=== PATIENT | male | born 1995 | race Caucasian/White ===

== ENCOUNTER 2019-05-16 15:25 | Observation (INO) ==
[2019-05-16] MEDS ORDERED: ZOFRAN IV PRN (15:39)
[2019-05-16] MEDS ORDERED: SALINE LOCK IV FLUID XX ONE (15:39)
[2019-05-16] MEDS ORDERED: SODIUM CHLORIDE 0.9% INJ SCH (15:45)
[2019-05-16] MEDS ORDERED: XYLOCAINE-MPF 2% ONE (17:26)
[2019-05-16] MEDS ORDERED: ROBINUL ONE (17:26)
[2019-05-16] MEDS ORDERED: QUELICIN (DOSE) ONE (17:26)
[2019-05-16] MEDS ORDERED: ZOFRAN ONE (17:26)
[2019-05-16] MEDS ORDERED: ZEMURON ONE (17:27)
[2019-05-16] MEDS ORDERED: DIPRIVAN 1% ONE (17:27)
[2019-05-16 17:43] LABS: HEMATOCRIT 25.9 % (42.0-52.0); HEMOGLOBIN 8.6 g/dL (14.0-18.0)
[2019-05-16] MEDS ORDERED: DECADRON ONE (18:58)
--- NOTE | 2019-05-16 18:59 | ENDOSCOPY OPERATIVE NOTE ---
[facility] ENDOSCOPY OPERATIVE NOTE , PATIENT: Joaquín Newman ADMISSION DATE: 05/16/2019 MR#: [id number] : 1995 EGD PROCEDURE REPORT PROCEDURE DATE: 05/16/2019 SURGEON: Naren Sibley MD STATUS: inpatient BUILDING DISMANTLER: Parker Rodriguez and [employer] PREOPERATIVE DIAGNOSIS: The patient is a 24 yr old male here for an EGD due to melena and acute post hemorrhagic anemia. PROCEDURE PERFORMED: EGD, diagnostic MEDICATIONS: Per Anesthesia TOPICAL ANESTHETIC: none CONSENT: The patient understands the risks and benefits of the procedure and understands that these r isks include, but are not limited to: sedation, allergic reaction, infection, perforation and/or bleeding. Alternative means of evaluation and treatment include, among others: physical exam, x-rays, and/or surgical intervention. The patient elects to proceed with this endoscopic procedure. HISORY AND PHYSICAL: 05/16/2019 function. Hand hygiene and appropriate measures for infection prevention was taken. After the risks, benefits and alternatives of the procedure were thoroughly explained, Informed consent was verified, confirmed and timeout was successfully executed by the treatment team. The patient was anesthetized with topical anesthesia and the [id number]-[id number] ([id number]) endoscope was introduced through the mouth and advanced to the second portion of the duoden um. Retroflexion was performed in the stomach and revealed Fundoplication.. The gastroscope was then slowly withdrawn and removed. ESOPHAGUS: The mucosa of the esophagus appeared normal. There was no evidence of Hiatal hernia, Bar rett's esophagus, or varices. STOMACH: Mild gastritis (inflammation) was found in the gastric antrum. There was no evidence of AV M, Ulcer, tumor or masses seen. DUODENUM: The duodenal mucosa showed no abnormalities. SPECIMENS REMOVED: No ADVERSE EVENTS: There were no complications. POSTOPERATIVE DIAGNOSIS: 1. The mucosa of the esophagus appeared normal 2. Gastritis (inflammation) was found in the gastric antrum 3. The duodenal mucosa showed no abnormalities RECOMMENDATIONS: 1. Resume pre-procedure medications 2. Avoid non-steroid anti-inflammatory drugs 3. Start Clear liquid diet for 1 Day(s) 4. Meckel's scan REPEAT EXAM: Naren Sibley MD eSigned: Naren Sibley MD 05/16/2019 7:14 PM Revised: 05/16/2019 7:14 PM cc: Christopher Kennedy MD PATIENT NAME: Joaquín Newman MR#: [id number]
[2019-05-17] MEDS: PROTONIX IV SCH ×3 (03:44→15:16)
[2019-05-17 06:31] LABS: HEMOGLOBIN 8.3 g/dL (14.0-18.0); MCH 32.2 PG (27-31); MCHC 33.2 g/dL (33-37); MCV 96.9 FL (81-99); MPV 10.4 FL (7.4-10.4); RBC 2.58 XMIL (4.7-6.1); RDW 12.6 % (11.5-14.5); WBC 7.28 X1000 (4.8-10.8)
[2019-05-17 06:49] LABS: AGAP 11; BUN 11 mg/dL (8-22); CHLORIDE 103 mmol/L (98-107); COSMO 276; CREATININE 0.8 mg/dL (0.7-1.2); ESTIMATED GFR > 60; GLUCOSE 124 mg/dL (70-104); POTASSIUM 4.6 mmol/L (3.5-5.1); SODIUM 138 mmol/L (136-145); TCO2 24 mmol/L (25-35)
--- NOTE | 2019-05-17 07:45 | HISTORY AND PHYSICAL ---
CHIEF COMPLAINT: Black stools. HISTORY OF PRESENT ILLNESS: The patient is a 24-year-old white male followed in my medical practice, who had presented to the emergency room on 05/13/2019. He had melanotic stool and felt dizzy and the room was spinning after he had melanotic stool. He has a history of fundoplication x2, so is not vomit. He says he has been drinking heavily over the past 2 years, especially binge drinking on weekends and sometimes drinking during the week. He does admit to drinking several fire balls on 05/13/2019 and thereafter had the melanotic stool and was seen in the ER at [facility] where his hemoglobin was noted to be 11.6. He was discharged on Reglan and omeprazole 40 mg daily and he has been taking that, and he has had about 5 dark stools since that evaluation in the ER. He has had no major abdominal pain. Has been eating some but not a great deal. He also has noted he did drink a Ekta last evening. He also admits to taking 2 qdxk-wqc-lcujlps products for muscle development, which he is unaware of their contents. He is on no other medications. ALLERGIES: No known drug allergies. PAST MEDICAL HISTORY: 1. History of pyloric stenosis. 2. ADHD. 3. History of remote drug usage. 4. History of STD exposure. PAST SURGICAL HISTORY: Fundoplication x2. FAMILY HISTORY: Notable for hypertension in father and mother. SOCIAL HISTORY: Patient lives in [place]. He is moving to [place] in 1 week and is supposed to leave tomorrow for [place]. He lives with his girlfriend. He denies smoking. Does admit to heavy alcohol use, binge drinking. REVIEW OF SYSTEMS: Negative except as above. PHYSICAL EXAMINATION: VITAL SIGNS: Patient seen in the office. Weight is 185, which is down 3 pounds. He is muscular- appearing. Height 6 feet tall. Blood pressure 122/64, pulse 67. BMI 25. GENERAL: Pale-appearing white male, mildly ill appearing. HEENT: TMs clear. Sclerae anicteric. CARMINE, EOMI. OP, no redness. No bruises over the body. NECK: No LA or TMG. CV: Regular rate and rhythm without murmur. LUNGS: Clear to auscultation. BACK: NT. ABDOMEN: Soft. Minimal tenderness epigastrium and minimal right lower quadrant area. No mass or organomegaly. No rebound or guarding. GENITOURINARY AND RECTAL: Deferred. EXT: no cce NEURO: cn 2-12 intact no focal defs RECENT LABORATORY DATA: Reviewed from the ER visit from 05/13/2019 revealing white count 10 then, hemoglobin 11.6, platelets 431,000. CMP shows elevated SGPT at 53, glucose 104, BUN 36, creatinine 0.9, and sodium 131, potassium 4.9. Occult blood positive. On 05/16/2019, white count 5.6, hemoglobin down to 9.1, platelets 350,000. LFTs normal except for SGPT of 49, amylase 49, lipase 20. ASSESSMENT: 1. Gastrointestinal bleed with melanotic stools. 2. Alcohol abuse. 3. History of fundoplication x2. 4. History of pyloric stenosis. 5. Remote history of drug use. 6. Supplement usage for body building. PLAN: Avoid the supplements. He had been on some Clomid as well off the street. He will taper that and come off of that as well. Avoid NSAIDs. We will hold his omeprazole, give him IV Protonix. I have spoken with Dr. Sibley and he will see the patient and plans on EGD soon. Counseled in regard to alcohol cessation. Patient has been off alcohol in the past for up to 3 weeks and had no withdrawal symptoms per his report. cc: Christopher Kennedy MD [facility]
--- NOTE | 2019-05-17 14:15 | Diag Imaging Result Doc PS360 ---
NURA SCAN - 05/17/2019 INDICATION: Acute GI bleeding and anemia TECHNIQUE: 15.6 mCi of pertechnetate was administered COMPARISON: None FINDINGS: The exam is normal. There is normal uptake of the gastric mucosa. There is also normal liver and renal uptake. There is no area of abnormal uptake. IMPRESSION: Negative exam. Electronically signed by Anmol Rossi 05/17/2019 2:13 PM
--- NOTE | 2019-05-17 16:17 | PROGRESS NOTE ---
DATE: 05/17/2019 SUBJECTIVE: Patient is stable. Had a little bit of epigastric pain today, but not severe at all. EGD yesterday revealed mild gastritis, nothing bleeding. No obvious source of blood loss. OBJECTIVE: Vital Signs: Afebrile vital signs stable. CV: RRR without murmur. Lungs: CTA. Abdomen: Soft, NT, ND. No mass. No HSM. Extremities: No edema. Neurologic: Nonfocal. LABORATORIES: Show hemoglobin has dropped consistently and is 8.3 today with white count of 7.28, platelets 303. Sodium 138, potassium 4.6, chloride 103, CO2 24. BUN 11, creatinine 0.8, glucose 124, calcium 9.0. He is O positive with antibody screen negative. Meckel scan is negative. ASSESSMENT: 1. Gastrointestinal bleed, source unknown with negative Meckel scan and essentially negative esophagogastroduodenoscopy. 2. Alcohol abuse. 3. Supplement usage for body building of unknown variety, other than additional medications in addition to Clomid. 4. History of fundoplication times two with history of prior pyloric stenosis as an infant. 5. Remote history of drug use. PLAN: Continue IV PPI currently, and I spoke with Dr. Sibley and his nurse practitioner, and they plan for colonoscopy in the near future. Monitor for any signs of alcohol withdrawal, which appears unlikely at this point. cc: Christopher Kennedy MD
--- NOTE | 2019-05-17 18:32 | GASTROENTEROLOGY PROGRESS NOTE ---
DATE: 05/17/2019 SUBJECTIVE: Patient has denied any evidence of active bleeding over the last 2 days. He has not had a bowel movement yesterday or today. He had an EGD on 05/16/2019. Findings showed normal esophagus, mild gastritis, and normal duodenum. He was instructed to avoid NSAIDs. He had a Meckel's nuclear medicine scan today that showed a negative exam. The exam was normal. There was normal uptake of the gastric mucosa. There was also normal liver and renal uptake. There was no area of abnormal uptake noted. Today, patient's hemoglobin and hematocrit are slightly lower than yesterday, at 8.3 and 25.0. OBJECTIVE: Vital Signs: Temperature 97.7 degrees, pulse 70, respirations 19, blood pressure 135/49. General: The patient is awake and alert, in no acute distress. HEENT: Normocephalic, atraumatic. Pupils equal, round, reactive to light. Sclerae nonicteric. Cardiovascular: Regular rate and rhythm. Respiratory: Lung sounds clear. Abdomen: Soft. Nontender on palpation. Positive bowel sounds. LABORATORY RESULTS: Hematology: WBC 7.28, hemoglobin 8.3, hematocrit 25.0, MCV 96.9, platelet 303,000. Chemistry: Sodium 138, potassium 4.6, chloride 103, CO2 24, BUN 11, creatinine 0.8, glucose 124. ASSESSMENT AND PLAN: 1. Recent melenic stools. 2. Anemia. 3. History of May fundoplication. 4. History of alcohol use. 5. Patient has also been using supplements for body building. PLAN: Continue proton pump inhibitors. His esophagogastroduodenoscopy showed gastritis with no evidence of active bleeding. His Meckel's nuclear medicine scan was negative. Would recommend a colonoscopy. We had given the patient the option of having his colonoscopy as an outpatient since his vital signs were stable and he had not had any further active bleeding, but the patient wants to stay in the hospital and have the colonoscopy while he is in the hospital. I have discussed this case with Dr. Sibley. We will tentatively put the patient on for a colonoscopy on 05/19/2019. Further plans will be made according to findings. He will do his colon prep on Monday. I have discussed colonoscopy procedure. Patient wishes to proceed. Further plans will be made as needed. Dictated by DOMITILA Sharma for Naren Sibley MD cc: DOMITILA Ruff MD Stephen W. Harbin, MD
[2019-05-18 06:32] LABS: HEMATOCRIT 23.6 % (42.0-52.0); HEMOGLOBIN 7.7 g/dL (14.0-18.0); MCH 32.1 PG (27-31); MCHC 32.6 g/dL (33-37); MCV 98.3 FL (81-99); MPV 10.4 FL (7.4-10.4); RBC 2.4 XMIL (4.7-6.1); RDW 13.2 % (11.5-14.5); WBC 8.04 X1000 (4.8-10.8)
[2019-05-18] MEDS: PROTONIX IV SCH ×2 (06:50→21:10)
--- NOTE | 2019-05-18 12:58 | PROGRESS NOTE ---
DATE: 05/18/2019 SUBJECTIVE: A 24-year-old white gentleman, admitted to the hospital on 05/17/2019 with black stools. The patient is not offering any complaints. Family is at bedside. Hematocrit dropped to 7/23. PAST MEDICAL HISTORY: Reviewed. PAST SURGICAL HISTORY: Reviewed. MEDICINES: Reviewed. ALLERGIES: Not known. PHYSICAL EXAMINATION: Vital signs: Temperature is 97 degrees, pulse is 77, vitals are stable. General: Slightly pale. Neck: Supple. Chest: Bilateral air entry. Heart: Sounds are regular. I did not appreciate any murmurs in pulmonic area. Abdomen: Belly is soft, nontender. No signs of peritonitis. No neurological deficits. INVESTIGATIONS: CBC: White cell count 8, hematocrit 23, platelets 322,000. SMA 7 yesterday was normal. EGD was negative. Abdominal SPECT scan negative. ASSESSMENT AND PLAN: 1. Gastrointestinal bleed, stable. Transfuse 1 unit of packed RBC. 2. Daily CBC, orthostatic blood pressure. Continue IV Protonix. I spoke to Dr. Sibley's, nurse practitioner. They are planning to do colonoscopy in the morning and discussed the family at bedside. LEVEL OF DOCUMENTATION: 35 minutes. cc: MD Christopher Valdivia MD
[2019-05-18] MEDS: NS 500 ML IV SCH (13:05)
[2019-05-18] MEDS ORDERED: GOLYTELY PO ONE (14:00)
--- NOTE | 2019-05-18 14:51 | GASTROENTEROLOGY PROGRESS NOTE ---
DATE: 05/18/2019 SUBJECTIVE: The patient reports having a very small bowel movement that was dark in color. He did have a drop in his hemoglobin and hematocrit this morning. Yesterday his hemoglobin, hematocrit was 8.3 and 25.0, today it is 7.7 and 23.6. He does report a little lightheadedness when getting up. OBJECTIVE: Vital signs: Temperature 97.9 degrees, pulse 72, respirations 16, blood pressure 144/66. General: Patient is awake, alert, no acute distress. He denies abdominal pain. Denies other complaints except for some lightheadedness when getting up. LABORATORY: Hematology. WBC 8.04, hemoglobin 7.7, hematocrit 23.6, MCV 98.3. Chemistry. Sodium 138, potassium 4.6, chloride 106, CO2 24, BUN 11, creatinine 0.8, glucose 124. ASSESSMENT AND PLAN: 1. Melena. 2. Anemia. He had EGD on 05/16/2019 that showed normal esophagus, mild gastritis. He had a Meckel scan that showed no abnormal uptake. We are planning to proceed with a colonoscopy tomorrow for further evaluation. Would recommend 2 units of packed red blood cells today. We will continue to monitor his hemoglobin and hematocrit. Monitor for active bleeding. Further plans to be made according to colonoscopy findings. I have discussed the procedure along with the benefits and risks with patient and his family who are at the bedside and they wish to proceed. He will start his colon prep today and follow clear liquid diet, NPO after midnight for colonoscopy tomorrow. I have discussed this case with Dr. Sibley. Dictated by DOMITILA Sharma for Naren Sibley MD cc: DOMITILA Ruff MD Stephen W. Harbin, MD
[2019-05-18 15:23] LABS: UR AMPHETAMINES QUAL NONE DETECTED (NONE DETECT); UR BARBITUATES QUAL NONE DETECTED (NONE DETECT); UR BENZODIAZEPIN QUAL NONE DETECTED (NONE DETECT); UR CANNABINOIDS QUAL PRESUMPTIVE POSITIVE (NONE DETECT); UR COCAINE QUAL NONE DETECTED (NONE DETECT); UR METHADONE QUAL NONE DETECTED (NONE DETECT); UR OPIATES QUAL NONE DETECTED (NONE DETECT); UR OXYCODONE QUAL NONE DETECTED (NONE DETECT); UR PCP QUAL NONE DETECTED (NONE DETECT)
[2019-05-18 17:40] LABS: HEMATOCRIT 28.9 % (42.0-52.0); HEMOGLOBIN 9.5 g/dL (14.0-18.0)
[2019-05-19 05:47] LABS: BASO# 0.01 X1000 (0.0-0.2); BASO% 0.2 % (0.0-0.8); EOS% 1.6 % (0.0-10.0); HEMATOCRIT 29.9 % (42.0-52.0); LYMPH# 2.52 X1000 (1.2-3.4); LYMPH% 40.5 % (20.5-51.1); MCH 30.4 PG (27-31); MCHC 33.4 g/dL (33-37); MCV 90.9 FL (81-99); MONO# 0.45 X1000 (0.11-0.59); MONO% 7.2 % (1.7-9.3); MPV 10.1 FL (7.4-10.4); NEUT# 3.14 X1000 (1.4-6.5); NEUT% 50.5 % (42.2-75.2); PLT 342 X1000 (130-400); RBC 3.29 XMIL (4.7-6.1); RDW 15.3 % (11.5-14.5); WBC 6.22 X1000 (4.8-10.8)
[2019-05-19 06:27] LABS: AGAP 12; BUN 6 mg/dL (8-22); CALCIUM 8.6 mg/dL (8.8-10.2); CHLORIDE 107 mmol/L (98-107); COSMO 286; CREATININE 0.9 mg/dL (0.7-1.2); ESTIMATED GFR > 60; GLUCOSE 96 mg/dL (70-104); POTASSIUM 3.9 mmol/L (3.5-5.1); SODIUM 145 mmol/L (136-145); TCO2 26 mmol/L (25-35)
[2019-05-19] MEDS ORDERED: DIPRIVAN 1% ONE ×2 (10:30)
[2019-05-19] MEDS ORDERED: XYLOCAINE-MPF 2% ONE (10:30)
[2019-05-19] MEDS ORDERED: MORPHINE ONE (11:22)
--- NOTE | 2019-05-19 12:14 | PROGRESS NOTE ---
DATE: 05/19/2019 SUBJECTIVE: A 24-year-old white male came in with black, melanotic stool, anemia. The patient did receive 1 unit of packed RBCs. He has normal yellow stool. Hemoccult negative. OBJECTIVE: Hemodynamics: Stable. HEENT: Within normal limits. Neck: Supple. Chest: Clear. Heart: S1, S2 regular. Abdomen: Belly is soft, nontender. Neurologic: No obvious deficits. LABORATORY DATA: CBC: White cell count 6.2, hematocrit 29.9, platelet count 342,000. SMA-7 is normal. Urine toxicology positive for marijuana. ASSESSMENT AND PLAN: 1. Anemia, gastrointestinal bleeding. Esophagogastroduodenoscopy workup is negative. Status post 1 unit of packed red blood cell. Going for colonoscopy. 2. Check the CBC, orthostatic. If stable, will discharge in the morning. Meckel scan was negative. 3. Substance abuse problem. Will do the counseling, and will follow up on colonoscopy scheduled at [address] Sibley. Family was at bedside. LEVEL OF DOCUMENTATION: 25 minutes. cc: MD Christopher Valdivia MD
[2019-05-19] MEDS: NS 500 ML IV SCH (14:43)
--- NOTE | 2019-05-19 21:10 | Diag Imaging Result Doc PS360 ---
EXAM: SMALL BOWEL SERIES ONLY INDICATION: Anemia and melena. EGD and Colonoscopy negative TECHNIQUE: Oral barium contrast was administered and the bolus was followed with spot radiographs until it reached the colon. COMPARISON: None. FINDINGS: The small bowel appears grossly normal in course, caliber, contour, and mucosal relief. No discrete filling defect or stricture is identified. Barium is seen in the colon after five hours. IMPRESSION: Essentially unremarkable small bowel barium follow-through. Electronically signed by William Bond 05/19/2019 9:08 PM
[2019-05-20] MEDS: PRILOSEC PO SCH ×2 (05:57→06:28)
[2019-05-20 06:18] LABS: BASO# 0.01 X1000 (0.0-0.2); BASO% 0.1 % (0.0-0.8); EOS# 0.11 X1000 (0.0-0.7); EOS% 1.6 % (0.0-10.0); HEMATOCRIT 30.9 % (42.0-52.0); HEMOGLOBIN 10.4 g/dL (14.0-18.0); IMM GRAN# 0.02 X1000 (0.0-0.04); IMM GRAN% 0.3 % (0.0-0.5); LYMPH# 2.28 X1000 (1.2-3.4); LYMPH% 33.9 % (20.5-51.1); MCHC 33.7 g/dL (33-37); MONO# 0.67 X1000 (0.11-0.59); MPV 10.1 FL (7.4-10.4); NEUT# 3.63 X1000 (1.4-6.5); NEUT% 54.1 % (42.2-75.2); PLT 351 X1000 (130-400); RBC 3.36 XMIL (4.7-6.1); RDW 14.6 % (11.5-14.5); WBC 6.72 X1000 (4.8-10.8)
[2019-05-20 06:50] LABS: AGAP 11; BUN 10 mg/dL (8-22); CALCIUM 8.5 mg/dL (8.8-10.2); CHLORIDE 104 mmol/L (98-107); COSMO 281; CREATININE 0.9 mg/dL (0.7-1.2); ESTIMATED GFR > 60; GLUCOSE 109 mg/dL (70-104); POTASSIUM 3.8 mmol/L (3.5-5.1); SODIUM 141 mmol/L (136-145); TCO2 26 mmol/L (25-35)
[2019-05-20 07:47] VITALS: BP 133/56
--- NOTE | 2019-05-20 07:57 | PROGRESS NOTE ---
DATE: 05/20/2019 SUBJECTIVE: Mr. Newman is doing better. The patient had workup done for lower GI bleed. His colonoscopy was benign. The patient had workup for Meckel's diverticulum, and it was negative. The patient is feeling better. He denied any chest pain or palpitations. No nausea, vomiting. Abdominal pain improved. Oral intake is fair. Patient admitted with melanotic stool, who also had some dizziness. The patient had history of fundoplication x2 in the past, so the patient cannot vomit. The patient had a history of binge drinking. Patient's admission history and physical noted. Overall, the patient is doing better. Post transfusion hemoglobin and hematocrit 10.4 and 30.9. OBJECTIVE: Vital Signs: Noted. Neck: Supple. No JVD. Lungs: Bilateral good air entry present. CVS: S1 and S2 heard. Abdomen: Soft, nontender. Bowel sounds present. POLICE CHIEF DEPUTY: Alert, awake. Able to move all 4 limbs. ASSESSMENT AND PLAN: Overall, the patient is doing better. Vital signs stable. Lab is stable. He received 1 unit of packed red blood cell. I offered the patient help for alcohol cessation, and also cessation of his abnormal drinking of fire balls, but the patient claims he wants to do it by himself and he can. Overall, the patient is stable, and I am planning to discharge him home. We will continue his Prilosec. Watch for bleeding. In case of more distress, call us back or go to emergency room. Follow up with Dr. Kennedy in a week. His problems include gastrointestinal bleed, blood loss anemia, alcohol abuse, history of pyloric stenosis, supplement usage of body building protein. cc: MD Christopher Nguyen MD
--- NOTE | 2019-05-20 10:21 | GASTROENTEROLOGY PROGRESS NOTE ---
DATE: 05/20/2019 SUBJECTIVE: Mr. Newman was resting comfortably after his breakfast. He reported no signs of active bleeding. He did not have any melena. His appetite has been good. He has been eating well. He has not had any abdominal pain, nausea, vomiting. He reports no indigestion or heartburn. DIAGNOSTIC STUDIES: Today his hemoglobin was 10.4, hematocrit 30.9. So far EGD and colonoscopy were negative, and a small-bowel follow-through was also negative. IMPRESSION: 1. Occult gastrointestinal bleed. 2. Anemia secondary to gastrointestinal bleed. As far as the source of bleeding, we do not know at this point. PLAN: I would recommend capsule endoscopy which will need to be scheduled as an outpatient. In the meantime, I have advised him to stay on PPI and iron supplement that were started by Dr. Kennedy. Call and make an appointment at my office once he gets discharged. We will get him scheduled for capsule endoscopy down the road. He knows to call me if he shows any signs of bleeding after discharge. He would be looking for melena, bright red blood per rectum, and he would call us immediately. I have explained this plan to his mother and the patient himself. They understood, and all the pertinent questions were answered. cc: MD Christopher Love MD
--- NOTE | 2019-05-21 15:30 | ENDOSCOPY OPERATIVE NOTE ---
[facility] ENDOSCOPY OPERATIVE NOTE , PATIENT: Joaquín Newman ADM DATE: 05/19/2019 MR #: #[id number] : 1995 COLONOSCOPY PROCEDURE REPORT PROCEDURE DATE: 05/19/2019 SURGEON: Naren Sibley MD STATUS: inpatient ELECTRICAL ELECTRONICS ENGINEERS: Sobeida Sosa and Parker Rodriguez PREOPERATIVE DIAGNOSIS: The patient is a 24 yr old male here for a colonoscopy due to anemia, non-sp ecific and melena. PROCEDURE PERFORMED: Colonoscopy, diagnostic MEDICATIONS: Per Anesthesia PREP TYPE: GoLytely
== END 2019-05-20 10:04 | disposition home or self-care (01) ==
LOC: DIRADM → EDIPHOLD 15:25 → 4N 17:43
PROVIDERS: ADMIT Family Medicine; ATTEND Family Medicine